=== PATIENT | male | born 1995 | race Caucasian/White ===

== ENCOUNTER 2020-03-02 09:58 | Outpatient (CLI) | payer BC, SELFPAY ==
[2020-03-02 10:18] LABS: Hematocrit 49.4 % (40.0-54.0); Hemoglobin 16.5 g/dL (14.0-18.0); Mean Corpuscular HGB Conc 33.4 g/dL (32.0-36.0); Mean Corpuscular Hemoglobin 31.2 pg (27.0-31.0); Mean Corpuscular Volume 93.4 fL (78.0-102.0); Mean Platelet Volume 9.9 fl (8.7-11.0); Platelet Count Result 225 K/mm3 (150-420); Red Blood Count 5.29 M/mm3 (4.70-6.10); Red Cell Distribution Width 11.7 % (11.6-14.4); White Blood Count 6.3 K/mm3 (4.8-10.8)
[2020-03-02 10:43] LABS: Alanine Aminotransferase 24 U/L (16-63); Albumin Level 4.3 g/dL (3.4-5.0); Alkaline Phosphatase 60 U/L (46-116); Anion Gap 4 mmol/L (8-16); Aspartate Amino Transferase 10 U/L (15-37); Bilirubin,Total 0.3 mg/dL (0.00-1.00); Blood Urea Nitrogen 11 mg/dL (7-18); Calcium 9.5 mg/dL (8.5-10.1); Carbon Dioxide 33 mmol/L (21-32); Chloride 104 mmol/L (98-108); Cholesterol 157 mg/dL (0-200); Estimated Glomerular Filt Rate > 60; Glucose 96 mg/dL (70-99); HDL Direct 53 mg/dL (40-60); LDL Cholesterol Calculated 94 mg/dL (<130); Osmolality Calculated 291 mOsm/kg (285-295); Potassium 4.8 mmol/L (3.5-5.1); Sodium 141 mmol/L (136-145); Total Protein 7.1 g/dL (6.4-8.2); Triglycerides 51 mg/dL (0-150)
== END 2020-03-02 09:59 | disposition home or self-care (01) ==
LOC: CHSLAB 10:02
PROVIDERS: PCP Family Medicine; Visit Provider Family Medicine
DX: Z02.1 Encounter for pre-employment examination (principal)
CPT/HCPCS: 36415; 80053; 80061; 85027

== ENCOUNTER 2022-02-25 10:56 | Outpatient (CLI) | payer BC, SELFPAY ==
[2022-02-25 11:09] LABS: Hematocrit 43.8 % (40.0-54.0); Hemoglobin 15.2 g/dL (14.0-18.0); Mean Corpuscular HGB Conc 34.7 g/dL (32.0-36.0); Mean Corpuscular Hemoglobin 32.2 pg (27.0-31.0); Mean Corpuscular Volume 92.8 fL (78.0-102.0); Mean Platelet Volume 9.6 fl (8.7-11.0); Platelet Count Result 236 K/mm3 (150-420); Red Blood Count 4.72 M/mm3 (4.70-6.10); Red Cell Distribution Width 11.8 % (11.6-14.4); White Blood Count 7.1 K/mm3 (4.8-10.8)
[2022-02-25 11:33] LABS: Hemoglobin A1C 5.1 % (<5.7)
[2022-02-25 12:25] LABS: Alanine Aminotransferase 21 U/L (16-63); Albumin Level 4.6 g/dL (3.4-5.0); Alkaline Phosphatase 54 U/L (46-116); Anion Gap 10 mmol/L (8-16); Aspartate Amino Transferase 12 U/L (15-37); Blood Urea Nitrogen 12 mg/dL (7-18); Calcium 9.1 mg/dL (8.5-10.1); Carbon Dioxide 27 mmol/L (21-32); Chloride 103 mmol/L (98-108); Cholesterol 153 mg/dL (0-200); Estimated Glomerular Filt Rate > 60; Glucose 75 mg/dL (70-99); HDL Direct 70 mg/dL (40-60); LDL Cholesterol Calculated 69 mg/dL (<130); Osmolality Calculated 288 mOsm/kg (285-295); Potassium 3.7 mmol/L (3.5-5.1); Sodium 140 mmol/L (136-145); Total Protein 7.5 g/dL (6.4-8.2); Triglycerides 68 mg/dL (0-150)
== END 2022-02-25 10:57 | disposition home or self-care (01) ==
LOC: CHSLAB 10:57
PROVIDERS: PCP Family Medicine; Visit Provider Family Medicine
DX: Z00.00 Encounter for general adult medical examination without abnormal findings (principal); E11.9 Type 2 diabetes mellitus without complications
CPT/HCPCS: 36415; 80053; 80061; 83036; 85027

== ENCOUNTER 2022-04-24 18:14 | Emergency (ER) | payer BC, SELFPAY ==
[2022-04-24 18:25] VITALS: BP 120/87; PULSE 93; RESP 16; TEMP 36.7; O2SAT 99
--- NOTE | 2022-04-24 19:08 | ED.EYEPROB ---
HPI - Eye Problem General Chief complaint: Eye Problems Stated complaint: swollen rt eye and irritation Time Seen by Provider: 04/24/22 19:08 Source: patient, RN notes reviewed and old records reviewed Mode of arrival: ambulatory Limitations: no limitations History of Present Illness HPI Narrative: 27 tear old male who presents to [facility] care with complaints of swelling and redness to the right upper eyelid which started this morning with discomfort. Patient also states that he has had sinus congestion and drainage today.Patient denies any visual changes or any acute eye pain. Patient reports that his tetanus is up to date. MD chief complaint: eye redness (upper eyelid) Onset (ago): hour(s) (started this morning) Onset description: sudden Duration: progressively worsening Location: right eye Treatments Prior to Arrival: none Related Data Patient tetanus UTD: Yes Allergies Allergy/AdvReac Type Severity Reaction Status Date / Time No Known Allergies Allergy Verified 04/25/22 09:10 Review of Systems Review of Systems: CONSTITUTIONAL: Denies fever, chills, or sweats. EYES: Denies visual changes. Reports redness,, irritation,swelling of right upper eyelid noted excessive watering ENT: Denies rhinorrhea, congestion, sore throat, or otalgia. CARDIOVASCULAR: Denies chest pain, palpitations, or edema. RESPIRATORY: Denies cough or dyspnea. SKIN: Denies rash or itching. NEUROLOGIC: Denies headache All systems reviewed & are unremarkable except as noted in HPI and below PMFSH Past Medical History Medical History Chronic hoarseness No active medical problems Surgical History Surgical History Hx of tonsillectomy Age 11 Family History Family History Father Healthy adult Mother Healthy adult Grandparent Lung cancer Social History Social History Smoking status: Never smoker Substance use: never Lack of Transportation: No Lack of Food: Never True Current Housing: I Have Housing Concerned About Future Housing: No Difficulty Paying Gas/Electric Bills: No Difficulty Paying for Meds: No Currently Unemployed: No Education: Bachelor's Degree Difficulty w/ Childcare or Family Care: No Additional living arrangements comments: Single. No children. Additional occupation/education comments: [employer] Comments At time of signature, agree with nursing past medical, surgical, social and family history. There is no relevant family history pertinent to the presenting complaint Exam Narrative: GENERAL: Well-appearing, well-nourished, and in no acute distress. HEAD: Normocephalic, atraumatic. EYES: PERRLA and EOMI.right upper eyelid swollen with discomfort and redness, small blistery looking lesion noted under right upper eyelid,lower eyelids unremarkable. No periorbital cellulitis noted. Sclera and conjunctivae clear. ENT: Nares clear, clear rhinorrhea no epistaxis. Mucous membranes moist.Tm's normal with good light reflex, throat pink with no lesions or exudates or swelling. NECK: Supple.no lymphadenopathy CHEST: Clear to auscultation. No respiratory distress.SAO2 99% on room air HEART: Regular rate and rhythm. No murmur heard. Normal peripheral pulses. SKIN: Warm, dry, no rash. NEURO: No focal deficits. Alert and oriented x3. Course Course Emergency Course: Patient is aware of diagnosis, understands and agrees to treatment plan. Anticipatory guidance given. Patient agrees to follow-up as directed and is aware of reasons to seek care at the emergency department. Portions of this record may have been created with voice recognition software Level of Care: Express Care Visit Vital Signs Vital signs: Vital Signs Temperature 36.7 C 04/24/22 18:25 Pulse Rate 93 04/24/22
== END 2022-04-24 19:35 | disposition home or self-care (01) ==
PROVIDERS: Emergency Provider Registered Nurse; PCP Family Medicine
DX: H00.021 Hordeolum internum right upper eyelid (principal)
CPT/HCPCS: 99213; G0463

== ENCOUNTER 2023-03-11 09:28 | Outpatient (CLI) | payer BC, SELFPAY ==
[2023-03-11 09:58] LABS: Hemoglobin A1C 5.4 % (<5.7)
[2023-03-11 10:15] LABS: Urine Cotinine POSITIVE (Negative)
[2023-03-11 10:33] LABS: Alanine Aminotransferase 22 U/L (16-63); Albumin Level 4.3 g/dL (3.4-5.0); Alkaline Phosphatase 55 U/L (46-116); Anion Gap 8 mmol/L (8-16); Bilirubin,Total 0.7 mg/dL (0.00-1.00); Blood Urea Nitrogen 17 mg/dL (7-18); Calcium 9.2 mg/dL (8.5-10.1); Carbon Dioxide 31 mmol/L (21-32); Chloride 101 mmol/L (98-108); Cholesterol 186 mg/dL (0-200); Estimated Glomerular Filt Rate > 60; Glucose 100 mg/dL (70-99); HDL Direct 53 mg/dL (40-60); LDL Cholesterol Calculated 117 mg/dL (<130); Osmolality Calculated 291 mOsm/kg (285-295); Potassium 4.3 mmol/L (3.5-5.1); Sodium 140 mmol/L (136-145); Total Protein 7.4 g/dL (6.4-8.2); Triglycerides 79 mg/dL (0-150)
[2023-03-11 10:47] LABS: Aspartate Amino Transferase 14 U/L (15-37)
== END 2023-03-11 09:29 | disposition home or self-care (01) ==
LOC: CHSLAB 09:30
PROVIDERS: PCP Family Medicine; Visit Provider Family Medicine
DX: Z00.00 Encounter for general adult medical examination without abnormal findings (principal); E11.9 Type 2 diabetes mellitus without complications; M76.31 Iliotibial band syndrome, right leg
CPT/HCPCS: 80053; 80061; 80307; 83036

== ENCOUNTER 2024-03-15 11:15 | Outpatient (CLI) | payer BC, SELFPAY ==
[2024-03-15 11:27] LABS: Basophils Absolute Auto 0.03 K/mm3 (0.00-0.10); Basophils Percent Auto 0.5 % (0.0-1.0); Eosinophils Absolute Auto 0.01 K/mm3 (0.02-0.50); Eosinophils Percent Auto 0.2 % (1.0-6.0); Hematocrit 39.2 % (40.0-54.0); Hemoglobin 13.6 g/dL (14.0-18.0); Immature Granulocyte Absolute 0.02 K/mm3 (0.00-0.00); Immature Granulocyte Percent A 0.3 % (0.0-0.0); Lymphocytes Percent Auto 34.1 % (18.0-42.0); Mean Corpuscular HGB Conc 34.7 g/dL (32-36); Mean Corpuscular Hemoglobin 31.3 pg (27.0-31.0); Mean Corpuscular Volume 90.1 fL (78.0-102.0); Mean Platelet Volume 9.2 fl (8.7-11.0); Monocytes Absolute Auto 0.57 K/mm3 (0.10-0.90); Monocytes Percent Auto 8.8 % (2.0-11.0); Neutrophils Absolute Auto 3.63 K/mm3 (1.70-7.20); Neutrophils Percent Auto 56.1 % (50.0-70.0); Platelet Count Result 178 K/mm3 (150-420); Red Blood Count 4.35 M/mm3 (4.70-6.10); Red Cell Distribution Width 11.8 % (11.6-14.4); White Blood Count 6.5 K/mm3 (4.8-10.8)
[2024-03-15 12:07] LABS: Urine Cotinine NEGATIVE (Negative)
[2024-03-15 12:16] LABS: Alanine Aminotransferase 20 U/L (16-63); Albumin Level 3.9 g/dL (3.4-5.0); Alkaline Phosphatase 53 U/L (46-116); Anion Gap 7 mmol/L (4-12); Aspartate Amino Transferase 11 U/L (15-37); Bilirubin,Total 0.4 mg/dL (0.00-1.00); Blood Urea Nitrogen 12 mg/dL (7-18); Carbon Dioxide 30 mmol/L (21-32); Chloride 104 mmol/L (98-108); Cholesterol 181 mg/dL (0-200); Estimated Glomerular Filt Rate > 60; Glucose 88 mg/dL (70-99); HDL Direct 60 mg/dL (40-60); LDL Cholesterol Calculated 103 mg/dL (<130); Osmolality Calculated 290 mOsm/kg (285-295); Potassium 4.2 mmol/L (3.5-5.1); Sodium 141 mmol/L (136-145); Total Protein 6.4 g/dL (6.4-8.2); Triglycerides 89 mg/dL (0-150)
[2024-03-15 13:12] LABS: Hemoglobin A1C 5.2 % (<5.7)
== END 2024-03-15 11:16 | disposition home or self-care (01) ==
LOC: CHSLAB 11:16
PROVIDERS: PCP Family Medicine; Visit Provider Family Medicine
DX: Z00.00 Encounter for general adult medical examination without abnormal findings (principal); E11.9 Type 2 diabetes mellitus without complications
CPT/HCPCS: 80053; 80061; 80307; 83036; 85025

== ENCOUNTER 2025-03-16 12:14 | Outpatient (CLI) | payer BC, SELFPAY ==
--- OUTSIDE RECORDS SUMMARY | 2025-03-16 12:34 | XMS_ITS | Clinical Summary ---
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 2-4 times a month 07/27/2024 Q2: How many drinks containi ng alcohol do you have on a typical day when you are drinking? 1 or 2 07/27/2024 Q3: How often do you have si x or more drinks on one occasion? Never 07/27/2024 Sex and Gender Information Value Date Recorded Sex Assigned at Not on file Legal Sex Male 11:13 PM [employer] MAN Gender Identity Not on file Sexual Orientation Not on file Last Filed Vital Signs Vital Sign Reading Time Taken Comments Blood Pressure - - Pulse - - Temperature - - Respiratory Rate - - Oxygen Saturation - - Inhaled Oxygen Concentration - - Weight 73.6 kg (162 lb 3.2 oz) 07/27/2024 9:56 A M CDT Height 190.5 cm (6' 3) 07/27/2024 9:56 AM CDT Body Mass Index 20.27 07/27/2024 9:56 AM CDT Plan of Treatment Health Maintenance Due Date Last Done Comments Depression Screening 1994 Hepatitis C Screening 1994 Varicella Vaccines (2 of 2 - 2-dose childhood series) 02/03/2002 11/11/2001 Regular Well Visit/Exam 18-64 02/03/2012 HPV Vaccines (3 - Male 3-dose series) 10/04/2015 06/26/2015, 04/04/2015 DTaP/Tdap/Td Vaccine (7 - Td or Tdap) 11/15/2018 11/15/2008, 02/24/1998, 05/23/1995, Additional history exists Influenza Vaccine (#1) 2024 02/25/2022, 2014 Hepatitis B Screening Completed 1994 , 1994, 1994 Pneumococcal vaccine <65 Aged Out No longer eligible based on patient's age to complete this topic Insurance [facility] CHO[facility] Care Teams Bottle Washer Machine Relationship Specialty Start Date End Date No, Physician PCP - General 07/19/24
[2025-03-16 13:09] LABS: Alanine Aminotransferase 16 U/L (6-50); Albumin Level 5.1 g/dL (3.5-5.1); Alkaline Phosphatase 51 U/L (38-126); Anion Gap 12 mmol/L (4-12); Aspartate Amino Transferase 20 U/L (17-59); Bilirubin,Total 0.9 mg/dL (0.2-1.3); Blood Urea Nitrogen 11 mg/dL (9-20); Calcium 10.2 mg/dL (8.4-10.2); Carbon Dioxide 30 mmol/L (22-30); Chloride 100 mmol/L (98-107); Cholesterol 175 mg/dL (0-200); Estimated Glomerular Filt Rate > 60; Glucose 99 mg/dL (65-110); HDL Direct 70 mg/dL; Osmolality Calculated 293 mOsm/kg (285-295); Potassium 4.1 mmol/L (3.4-5.0); Sodium 142 mmol/L (137-145); Total Protein 7.8 g/dL (6.3-8.2); Triglycerides 67 mg/dL (<150)
== END 2025-03-16 12:15 | disposition home or self-care (01) ==
LOC: CHSLAB 12:16
PROVIDERS: PCP Nurse Practitioner Family; Visit Provider Nurse Practitioner Family
DX: Z00.00 Encounter for general adult medical examination without abnormal findings (principal); Z13.6 Encounter for screening for cardiovascular disorders
CPT/HCPCS: 36415; 80053; 80061